=== PATIENT | male | born 1965 | race Caucasian/White ===

== ENCOUNTER 2021-11-04 01:37 | Observation (INO) | payer MEDICARE, SELFPAY ==
[2021-11-04] VITALS (23 sets, daily range): BP systolic 106–151; BP diastolic 66–98; PULSE 66–78; RESP 10–25; TEMP 36.4–36.6; O2SAT 94–100; BMI 32.2
--- NOTE | ~2021-11-04 | XR_ITS ---
EXAMINATION: XR chest 2V DATE: 11/04/2021 02:26 INDICATION: Chest pain radiating down the left arm TECHNIQUE: PA and lateral views of the chest were obtained. COMPARISON: None FINDINGS: Mild linear discoid atelectasis/scarring at the anterior lung bases on the lateral projection. Unclea r whether in the right middle lobe and/or lingula. No other airspace opacities, pulmonary edema, pleu ral effusion or pneumothorax. The cardiomediastinal silhouette is normal. Coronary artery stenting. C hanges consistent with anterior spinal fusion in the lower cervical spine. IMPRESSION: 1. Mild atelectasis/scarring at the anterior lung bases. Reviewed, dictated and finalized at location A.
--- NOTE | 2021-11-04 01:40 | ECG_ITS ---
Measurements Intervals [place] Rate: 71 P: 26 FL: 174 QRS: -36 QRSD: 125 T: 103 QT: 389 QTc: 423 Interpretive Statements SINUS RHYTHM INCOMPLETE LEFT BUNDLE BRANCH BLOCK INFERIOR INFARCT, AGE INDETERMINATE BORDERLINE ST-T WAVE ABNORMALITY- HIGH LATERAL LEADS BASELINE ARTIFACT- V5-V6 ABNORMAL ECG Electronically Signed On 11-04-2021 6:59:27 CDT by Ihsan Cortez D.O.
--- NOTE | 2021-11-04 01:59 | PC.NURSE ---
GIVEN 324 MG BABY ASA PRIOR TO ARRIVAL
[2021-11-04 02:01] LABS: Basophils Percent Auto 0.6 % (0.2-1.2); Eosinophils Percent Auto 0.2 % (0-4.4); Hematocrit 47.2 % (42.0-52.0); Hemoglobin 15.9 g/dL (14.0-18.0); Immature Granulocyte Absolute 0.02 K/mm3 (0.00-0.031); Immature Granulocyte Percent A 0.3 % (0-0.5); Lymphocytes Absolute Auto 2.88 K/mm3 (0.9-3.2); Lymphocytes Percent Auto 44.2 % (18.3-44.2); Mean Corpuscular HGB Conc 33.7 g/dl (32-36); Mean Corpuscular Hemoglobin 31.3 pg (26-34); Mean Corpuscular Volume 92.9 fl (80-100); Mean Platelet Volume 10.9 fl (7.4-10.4); Monocytes Absolute Auto 0.5 K/mm3 (0.1-0.6); Monocytes Percent Auto 6.9 % (2.6-8.5); Neutrophils Absolute Auto 3.1 K/mm3 (1.3-6.7); Neutrophils Percent Auto 47.8 % (45.5-73.1); Platelet Count Result 158 k/mm3 (150-375); Red Blood Count 5.08 M/mm3 (4.6-6.20); Red Cell Distribution Width 14.6 % (11.5-14.5); White Blood Count 6.5 K/mm3 (4.5-10.0)
[2021-11-04 02:11] LABS: Alanine Aminotransferase 16 U/L (6-50); Albumin Level 3.7 g/dL (3.5-5.1); Alkaline Phosphatase 90 U/L (38-126); Anion Gap 6 mmol/L (8-16); Aspartate Amino Transferase 20 U/L (17-59); Bilirubin,Total 0.4 mg/dL (0.2-1.3); Blood Urea Nitrogen 21 mg/dL (9-20); Calcium 8.7 mg/dL (8.4-10.2); Carbon Dioxide 24 mmol/L (22-30); Chloride 106 mmol/L (98-107); Estimated Glomerular Filt Rate > 60; Glucose 132 mg/dL (65-110); Lipase 147 U/L (23-300); Potassium 3.9 mmol/L (3.4-5.0); Sodium 136 mmol/L (137-145)
[2021-11-04 02:13] LABS: Prothrombin Time 12.8 Seconds (11.1-14.7)
[2021-11-04 02:14] LABS: Partial Thromboplastin Time 34.2 SECONDS (22.3-36.8)
[2021-11-04 02:22] LABS: Troponin I < 0.012 ng/mL (0.000-0.034)
--- NOTE | 2021-11-04 02:26 | ED.CHESTPAIN ---
HPI - Chest Pain General Chief Complaint: Chest Pain Stated Complaint: CHEST PAIN Time Seen by Provider: 11/04/21 01:41 History of Present Illness HPI narrative: Patient states that he was at rest, sleeping, when he suddenly had severe pain and pressure in his left chest that went down to his left arm, also had diaphoresis and nausea, no real pull to breathing, no recent fevers or chills or cough, he states that the symptoms feel exactly like the time that he had a heart attack. He had an NV in 2016 for which he had several stents placed, he states that he had a total of 11 cardiac caths and several MIs. He denies any other medical problems, no high blood pressure diabetes, he quit smoking in 2016. He called EMS and took 325 mg aspirin as well as 2 doses of nitro, with improvement in symptoms Related Data Home Medications Medication Instructions Recorded Confirmed isosorbide mononitrate 60 mg 60 mg PO DAILY 11/04/21 tablet,extended release 24 hr levothyroxine 25 mcg tablet 25 mcg PO DAILY 11/04/21 lisinopril 5 mg tablet 5 mg PO DAILY 11/04/21 metoprolol succinate 25 mg 25 mg PO DAILY 11/04/21 tablet,extended release 24 hr nitroglycerin 0.4 mg sublingual 0.4 mg sublingual Q5-15M PRN Chest 11/04/21 tablet Pain pantoprazole 40 mg tablet,delayed 40 mg PO QAM 11/04/21 release prasugrel 10 mg tablet 10 mg PO DAILY 11/04/21 ranolazine 500 mg tablet,extended 500 mg PO Q12H 11/04/21 release,12 hr rosuvastatin 40 mg tablet 40 mg PO DAILY 11/04/21 venlafaxine 150 mg tablet,extended 150 mg PO DAILY 11/04/21 release 24 hr Allergies Allergy/AdvReac Type Severity Reaction Status Date / Time Sulfa (Sulfonamide Allergy Hives Verified 11/04/21 01:49 Antibiotics) Review of Systems Review of Systems: CONST: No fever. HEENT: No sore throat C/V: Chest pain RESP: No cough GI: Nausea : No dysuria. M/S: Pain left arm SKIN: No rash. NEURO: [No focal numbness or weakness] PSYCH: [No depression] [facility] Past Medical History Medical History (Updated 11/04/21 @ 02:55 by Jaquelin Harding MD) Myocardial infarct Surgical History Surgical History (Updated 11/04/21 @ 02:29 by Jaquelin Harding MD) History of coronary artery stent placement Social History Social History (Updated 11/04/21 @ 02:29 by Jaquelin Harding MD) Smoking status: Former smoker Exam Narrative: EXAMINATION OF ORGAN SYSTEMS/BODY AREAS: Constitutional: Vital signs per nursing GENERAL: Slightly uncomfortable but does not appear to be in severe pain or distress HEAD: Normal with no signs of head trauma. EYES: EOMI, conjunctiva normal ENT: Hearing grossly intact LUNGS: Nonlabored breathing. HEART: [Regular rate and rhythm] ABD: [Soft], [nontender to palpation] EXT: Normal range of motion SKIN: [No rashes or lesions.] NEURO: [Alert and oriented x 3. No gross focal sensory or strength deficits.] PSYCH: Normal affect Course Vital Signs Vital signs: Vital Signs Pulse Rate 76 11/04/21 01:38 Respiratory Rate 16 11/04/21 01:38 Blood Pressure 151/98 H 11/04/21 01:38 Pulse Oximetry 98 11/04/21 01:38 Oxygen Delivery Room Air 11/04/21 01:38 Pulse Rate 73 11/04/21 01:49 Respiratory Rate 16 11/04/21 01:38 Blood Pressure 151/98 H 11/04/21 01:38 Pulse Oximetry 98 11/04/21 01:38 Oxygen Delivery Room Air 11/04/21 01:38 MDM - Chest Pain MDM Narrative Medical decision making narrative: ED COURSE AND MEDICAL DECISION MAKINyoM presenting with chest pain. EKG done in triage negative for acute ischemic changes. Cardiac workup is initiated. EKG: Performed in triage and interpreted by me. Normal sinus rhythm. Rate 71. Normal axis. TX normal. QRS duration 125. QTc normal. No ST elevation. HEART score is 6. Doubt PE without difficulty breathing or hypoxia. Presentation not consistent with dissection or aneurysm without radiation of pain or pulse deficits. CXR negative for mediastinal widening. No abd
[2021-11-04 03:21] LABS: SARS-CoV-2 RNA PCR Negative
--- NOTE | 2021-11-04 04:21 | ADMGEN ---
This patient, Eleazar Vila, was admitted to IMU Room 209-01 at 0421. Patient/family oriented to hospital policies and general routines including ID bracelet, bed and alarms, visiting hours, pain management, procedures, bathroom and other care routines, personal items, smoking policy, room service/diet, and visiting hours. Information on how to activate the Rapid Response Team has been discussed. Patient/Family are encouraged to report perceived risks to care and to ask questions if they do not understand what they are told or what they should do.
[2021-11-04 07:22] LABS: Troponin I < 0.012 ng/mL (0.000-0.034)
[2021-11-04 10:08] LABS: Troponin I < 0.012 ng/mL (0.000-0.034)
--- NOTE | 2021-11-04 12:27 | PM.IMHP ---
H&P: HPI History of Present Illness Date/Time: 11/04/21 12:27 Chief Complaint: Patient states that he was at rest, sleeping, when he suddenly had severe pain and pressure in his left chest that went down to his left arm, also had diaphoresis and nausea, no real pull to breathing, no recent fevers or chills or cough, he states that the symptoms feel exactly like the time that he had a heart attack.? He had an [place] in 2016 for which he had several stents placed, he states that he had a total of 11 cardiac caths and several MIs.? He denies any other medical problems, no high blood pressure diabetes, he quit smoking in 2016.? He called EMS and took 325 mg aspirin as well as 2 doses of nitro, with improvement in symptoms Review of Systems Review of Systems: 10 point ROS negative except as stated in HPI / Subjective PMFSH Past Medical History Medical History Myocardial infarct Surgical History Surgical History History of coronary artery stent placement Family History Family History Mother FH: sudden cardiac (SCD) Arthritis Diabetes mellitus Osteoarthritis Heart problem Social History Social History Smoking status: Former smoker Alcohol intake: never Substance use: never Spiritual care concerns: No Meds Home Medications and Allergies Home Medications Medication Instructions Recorded Confirmed Type isosorbide mononitrate 60 mg 60 mg PO DAILY 11/04/21 11/04/21 History tablet,extended release 24 hr levothyroxine 25 mcg tablet 25 mcg PO DAILY 11/04/21 11/04/21 History lisinopril 5 mg tablet 5 mg PO DAILY 11/04/21 11/04/21 History metoprolol succinate 25 mg 25 mg PO DAILY 11/04/21 11/04/21 History tablet,extended release 24 hr nitroglycerin 0.4 mg sublingual 0.4 mg sublingual Q5-15M PRN Chest 11/04/21 11/04/21 History tablet Pain pantoprazole 40 mg tablet,delayed 40 mg PO QAM 11/04/21 11/04/21 History release prasugrel 10 mg tablet 10 mg PO DAILY 11/04/21 11/04/21 History ranolazine 500 mg tablet,extended 500 mg PO Q12H 11/04/21 11/04/21 History release,12 hr rosuvastatin 40 mg tablet 40 mg PO DAILY 11/04/21 11/04/21 History venlafaxine 150 mg tablet,extended 150 mg PO DAILY 11/04/21 11/04/21 History release 24 hr Allergies Allergy/AdvReac Type Severity Reaction Status Date / Time Sulfa (Sulfonamide Allergy Hives Verified 11/04/21 01:49 Antibiotics) Vital Signs Vital Signs - 24 hr 11/04/21 01:38 11/04/21 01:49 11/04/21 01:43 Temperature Pulse Rate 76 73 75 Respiratory Rate 16 16 Blood Pressure 151/98 H Pulse Oximetry 98 98 Oxygen Delivery Room Air 11/04/21 01:45 11/04/21 01:46 11/04/21 01:55 Temperature Pulse Rate 78 72 74 Respiratory Rate 15 25 H 14 Blood Pressure 124/74 106/74 Pulse Oximetry 98 97 98 Oxygen Delivery 11/04/21 02:00 11/04/21 02:01 11/04/21 02:15 Temperature Pulse Rate 77 73 77 Respiratory Rate 18 12 13 Blood Pressure 114/77 Pulse Oximetry 100 97 100 Oxygen Delivery 11/04/21 02:16 11/04/21 02:30 11/04/21 02:45 Temperature Pulse Rate 75 75 73 Respiratory Rate 23 H 15 17 Blood Pressure 109/76 Pulse Oximetry 100 99 96 Oxygen Delivery 11/04/21 03:00 11/04/21 03:15 11/04/21 03:30 Temperature Pulse Rate 70 76 67 Respiratory Rate 10 L 16 18 Blood Pressure Pulse Oximetry 98 97 95 Oxygen Delivery 11/04/21 04:21 11/04/21 04:21 11/04/21 05:00 Temperature 97.5 F L Pulse Rate 67 67 66 Respiratory Rate 18 20 Blood Pressure 114/66 Pulse Oximetry 95 98 Oxygen Delivery Room Air 11/04/21 06:00 11/04/21 07:46 11/04/21 08:00 Temperature 97.6 F Pulse Rate 69 78 Respiratory Rate 16 Blood Pressure 109/73 Pulse Oximetry 97 Oxygen Deliv
[2021-11-04] MEDS: RANOLAZINE 500 MG TAB.ER.12H PO (12:29)
[2021-11-04] MEDS: VENLAFAXINE HCL XR 75 MG CAP.ER.24H 150 MG PO (12:29)
[2021-11-04] MEDS: PRASUGREL HCL 10 MG TABLET PO (12:29)
[2021-11-04] MEDS: ROSUVASTATIN 10 MG TABLET 40 MG PO (12:29)
[2021-11-04] MEDS: PANTOPRAZOLE 40 MG TABLET PO (12:29)
--- NOTE | 2021-11-04 12:39 | PM.CNCAR ---
Assessment and Plan Assessment and plan (1) Chest pain: Code(s): R07.9 - Chest pain, unspecified Status: Acute Plan This is a 56-year-old man who has a history of coronary disease for more than 10 years already. He apparently has had previous inferior park shah and several previous percutaneous revascularization procedures. He generally is feeling well. He had an episode of nitrate responsive chest discomfort in the middle of the night that prompted admission to the hospital for observation. Acute coronary syndrome has been ruled out by serial troponin levels. He is comfortable at this time and would like to be discharged. With 3- troponin levels he is stable enough to be is discharged in general. I will arrange for ongoing longitudinal follow-up of his coronary disease in our office. He is moving here from [place]. He will try to get records of his prior cardiac care from [place] transferred to our office for our benefit. It is also important that he establishes with a primary care physician in this community. Markell Loredo MD [facility] History of Present Illness History of Present Illness Consult date/time: 11/04/21 12:39 Consult reason: chest pain Reason For Visit: chest pain Narrative: This is a 56-year-old man I am seeing at the request of the hospitalist because of chest pain with which he was admitted to the hospital in the middle of the night. This patient is unknown to me prior to this consultation. He was in his usual state of health at home when he was been feeling well for and recent months and years regarding his heart. He was awakened in the middle of the night with some chest pain he describes a mild but definite heaviness or dull pressure-like sensation in the left precordium. It was not severe but was reminiscent of previous cardiac symptoms he has had in the past and so he came to the emergency room for evaluation. He took couple of nitroglycerin tablets at home that he has which did improve the symptoms but did not resolve entirely he received some oxygen aspirin and some more nitroglycerin in the emergency room which alleviated his symptoms completely. He was then admitted to the IMU for further evaluation and management. He has had 3 sets of troponin levels that are unremarkable. Patient's electrocardiogram shows sinus rhythm with previous inferior wall infarction. There are no old records in this patient's chart for review. He states that he has a longstanding history of coronary disease dating back to when he was about [age] years old when he presented with chest pain and a myocardial infarction he underwent emergency percutaneous revascularization in [place] where he has been residing up until recently. Since then he states he has had a total of 11 cardiac catheterization procedures to investigate chest pain and several subsequent interventions. The details of this are not available to me at the time of this dictation none of this care was delivered here at [facility]. 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 He does not have a physician established in this community at this time. His medical regimen consists of aspirin 81 mg per day isosorbide 50 mg per day lisinopril 5 mg per day metoprolol 25 mg per day prasugrel 10 mg per day Ranexa 500 mg q.12 hours rosuvastatin 40 mg per day he also takes Synthroid 25 mcg daily. 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 Review of Systems Constitutional: Constitutional: Reports no additional constitutional complaints Eyes: Eyes: Reports no additional eye complaints ENT: Reports system reviewed and no additional complaints,
--- NOTE | 2021-11-04 12:49 | PM.DS ---
DS: Admitting Diagnosis Discharge Date November 04, 2021 Admitting Diagnosis Chest pain DS: Discharge Diagnosis Discharge Diagnosis (1) Chest pain: Code(s): R07.9 - Chest pain, unspecified Status: Acute Assessment and Plan: Consul Cardiology. Tropes negative. Likely noncardiac. Await plan DS: Summary Hospital Course Hospital Course: Patient was admitted under observation for chest pain. Workup was unrevealing negative troponin x3. Cardiology Consul workup indicated at this time. Patient will follow up with Cardiology. Time Spent with Patient Time attestation: Total time spent providing and/or coordinating discharge services: Exam Narrative: General: alert and oriented Psych: appropriate mood nad affect Eyes: PERRLA Neck: Trachea midline, no new lesions Skin: no changes Lungs: CTA Cardiac: Normal S1,S2, no MGR ABD: soft, nd, nt, nbs Ext: no new lesions, no cce Vasc: Pulses intact DS: Data Data Completed and Pending Labs on day of discharge: Labs from last 24 hours 11/04/21 11/04/21 11/04/21 09:22 06:15 02:29 WBC RBC Hgb Hct MCV MCH MCHC RDW Plt Count MPV Immature Gran % (Auto) Neut % (Auto) Lymph % (Auto) [place] % (Auto) Eos % (Auto) Baso % (Auto) Lymph # (Auto) [place] # (Auto) Eos # (Auto) Baso # (Auto) Abs Immat Gran (auto) Absolute Neuts (auto) Absolute Nucleated RBC Nucleated RBC % PT INR APTT Sodium Potassium Chloride Carbon Dioxide Anion Gap BUN Creatinine Estim Creat Clear Calc Estimated GFR Glucose Calcium Total Bilirubin AST ALT Alkaline Phosphatase Troponin I < 0.012 < 0.012 Total Protein Albumin Lipase SARS-CoV-2 RNA (RT-PCR) Negative 11/04/21 11/04/21 11/04/21 01:55 01:55 01:55 WBC 6.5 RBC 5.08 Hgb 15.9 Hct 47.2 MCV 92.9 MCH 31.3 MCHC 33.7 RDW 14.6 H Plt Count 158 MPV 10.9 H Immature Gran % (Auto) 0.3 Neut % (Auto) 47.8 Lymph % (Auto) 44.2 [place] % (Auto) 6.9 Eos % (Auto) 0.2 Baso % (Auto) 0.6 Lymph # (Auto) 2.88 [place] # (Auto) 0.5 Eos # (Auto) 0.0 Baso # (Auto) 0.0 Abs Immat Gran (auto) 0.02 Absolute Neuts (auto) 3.1 Absolute Nucleated RBC 0.0 Nucleated RBC % 0.0 PT 12.8 INR 1.0 APTT 34.2 Sodium 136 L Potassium 3.9 Chloride 106 Carbon Dioxide 24 Anion Gap 6 L BUN 21 H Creatinine 1.20 Estim Creat Clear Calc Not Reportable Estimated GFR > 60 Glucose 132 H Calcium 8.7 Total Bilirubin 0.4 AST 20 ALT 16 Alkaline Phosphatase 90 Troponin I < 0.012 Total Protein 7.0 Albumin 3.7 Lipase 147 SARS-CoV-2 RNA (RT-PCR) Discharge Plan Discharge Attending physician on discharge: Markell Wells Consulting providers: Marisol Uribe Discharging Clinician: Markell Wells Patient Disposition: Home, Self-Care Activity: no preference Diet: as tolerated Patient Instructions: Antibiotic Form, Chest Pain (DC) Stand Alone Forms: General Discharge Information Follow-up/Referrals: Marisol Uribe, [employer] [Advanced Practice Nurse] - Discharge Medications: Continued levothyroxine 25 mcg Tablet 25 mcg PO DAILY isosorbide mononitrate 60 mg Tablet Extended Release 24 Hr 60 mg PO DAILY pantoprazole 40 mg Tablet,Delayed Release (Dr/Ec) 40 mg PO QAM nitroglycerin 0.4 mg Tablet, Sublingual 0.4 mg SUBLINGUAL Q5-15M PRN (Reason: Chest Pain) Rx Instructions: do not exceed 3 doses per episode lisinopril 5 mg Tablet 5 mg PO DAILY metoprolol succinate 25 mg Tablet Extended Release 24 Hr 25 mg PO DAILY rosuvastatin 40 mg Tablet 40 mg PO DAILY ranolazine 500 mg Tablet Extended Release 12 Hr 500 mg PO Q12H venlafaxine 150 mg Tablet Extended Release 24hr 150 mg PO DAILY
== END 2021-11-04 13:15 | disposition home or self-care (01) ==
LOC: ANHED 02:55 → ANHIMU 05:03 → ANH3MEDSUR 11-07 13:35
PROVIDERS: Admitting Provider Internal Medicine; Emergency Provider Emergency Medicine; Visit Provider Chiropractor
DX: R07.9 Chest pain, unspecified (principal); R61 Generalized hyperhidrosis; R11.0 Nausea; I25.2 Old myocardial infarction; I25.10 Atherosclerotic heart disease of native coronary artery without angina pectoris; I10 Essential (primary) hypertension; Z95.5 Presence of coronary angioplasty implant and graft; I44.7 Left bundle-branch block, unspecified; J98.11 Atelectasis; Z20.822 Contact with and (suspected) exposure to COVID-19; Z87.891 Personal history of nicotine dependence; Z82.49 Family history of ischemic heart disease and other diseases of the circulatory system; Z83.3 Family history of diabetes mellitus; Z79.82 Long term (current) use of aspirin; Z79.899 Other long term (current) drug therapy; Z79.02 Long term (current) use of antithrombotics/antiplatelets
CPT/HCPCS: 36415; 71046; 80053; 83690; 84484; 85025; 85610; 85730; 93005; 99285; A9270; C9803; G0378; U0003; U0005

== ENCOUNTER 2022-02-02 14:33 | Emergency (ER) | payer OTHER, MEDICARE, SELFPAY ==
--- NOTE | ~2022-02-02 | XR_ITS ---
XR elbow RT min 3V 02/02/2022 16:00 INDICATION: Right elbow pain PROCEDURE: 4 views right elbow COMPARISON: No prior studies for comparison. FINDINGS: Fracture, dislocation or subluxation is not identified. No significant joint effusion. Ther e are mild degenerative changes of the elbow. The soft tissues appear within normal limits. No forei gn bodies are identified. IMPRESSION: 1: NO ACUTE BONE OR JOINT ABNORMALITY IDENTIFIED. Reviewed, dictated and finalized at location B.
--- NOTE | ~2022-02-02 | XR_ITS ---
EXAMINATION: XR shoulder LT min 2V DATE: 02/02/2022 15:59 INDICATION: Left anterior shoulder pain. TECHNIQUE: AP internally and externally rotated, AP oblique externally rotated and transscapular Y vi ews of the left shoulder were obtained. COMPARISON: Chest radiograph dated 11/04/2021 FINDINGS: There is unchanged widening of the left acromioclavicular joint with rounded distal margin to the lat eral head of the left clavicle which suggests a prior acromioplasty. Alignment is otherwise normal. N o fracture. Glenohumeral joint is normal. Soft tissues are unremarkable. Visualized portion of the le ft lung is clear. IMPRESSION: Unchanged widening of the left acromioclavicular joint likely related to prior acromioplasty. Correla te with surgical history. No acute osseous abnormality. Reviewed, dictated and finalized at location A. IMPRESSION: Unchanged widening of the left acromioclavicular joint likely related to prior acromioplasty. Correlate with surgical history. No acute osseous abnormality.
[2022-02-02 15:00] VITALS: BP 107/65; PULSE 70; RESP 16; TEMP 36.3; O2SAT 100
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
== END 2022-02-02 16:27 | disposition home or self-care (01) ==
PROVIDERS: Emergency Provider Nurse Practitioner
DX: S40.012A Contusion of left shoulder, initial encounter (principal); S50.01XA Contusion of right elbow, initial encounter; V85.0XXA Driver of special construction vehicle injured in traffic accident, initial encounter; I25.2 Old myocardial infarction; Z79.82 Long term (current) use of aspirin; Z87.891 Personal history of nicotine dependence; I25.110 Atherosclerotic heart disease of native coronary artery with unstable angina pectoris; Z95.5 Presence of coronary angioplasty implant and graft; I10 Essential (primary) hypertension; K21.9 Gastro-esophageal reflux disease without esophagitis; E03.9 Hypothyroidism, unspecified
CPT/HCPCS: 73030; 73080; 99214; G0463